=== PATIENT | female | born 1950 ===

== ENCOUNTER → 2018-01-26 | Outpatient (CLI) | payer OTHER | END | disposition home or self-care (01) | LOC: LAB 09:12 | DX: C50.412 Malignant neoplasm of upper-outer quadrant of left female breast (principal); R97.0 Elevated carcinoembryonic antigen [CEA]; R97.1 Elevated cancer antigen 125 [CA 125]; R97.8 Other abnormal tumor markers; D68.8 Other specified coagulation defects; N39.0 Urinary tract infection, site not specified ==

== ENCOUNTER → 2018-03-02 | Outpatient (CLI) | payer OTHER | END | disposition home or self-care (01) | LOC: LAB 10:19 | DX: C50.412 Malignant neoplasm of upper-outer quadrant of left female breast (principal) ==

== ENCOUNTER 2018-03-12 10:21 | Outpatient (CLI) | payer OTHER | END 2018-03-12 10:27 | disposition home or self-care (01) | LOC: LAB 10:21 | DX: C50.412 Malignant neoplasm of upper-outer quadrant of left female breast (principal) ==

== ENCOUNTER 2018-03-20 08:58 | Outpatient (CLI) | payer OTHER | END 2018-03-20 09:04 | disposition home or self-care (01) | LOC: LAB 08:58 | DX: C50.412 Malignant neoplasm of upper-outer quadrant of left female breast (principal) ==

== ENCOUNTER 2018-03-23 09:14 | Outpatient (CLI) | payer OTHER | END 2018-03-23 14:00 | disposition home or self-care (01) | LOC: LAB 09:14 | DX: C50.412 Malignant neoplasm of upper-outer quadrant of left female breast (principal) ==